=== PATIENT | female | born 1945 | race Caucasian/White ===

== ENCOUNTER → 2023-05-19 12:55 | Outpatient (REF) | payer MEDICARE, OTHER, SELFPAY ==
[2023-05-19 13:52] VITALS: BP 164/66; BP_SYST 67
== END ==
LOC: RADI 12:55
PROVIDERS: ATTENDING PHYSICIAN Internal Medicine Endocrinology, Diabetes & Metabolism; FAMILY PHYSICIAN Family Medicine
DX: C73 Malignant neoplasm of thyroid gland (principal)
CPT/HCPCS: 88173; 10005; 88342

== ENCOUNTER 2023-06-22 06:10 | Day surgery (SDC) | payer MEDICARE, OTHER, SELFPAY ==
[2023-06-11 09:04] VITALS: BMI 35.5
[2023-06-22] VITALS (7 sets, daily range): BP systolic 140–179; BP diastolic 56–76; BMI 35.5
[2023-06-22] MEDS: TYLENOL 1000 MG PO (06:40)
[2023-06-22] MEDS: NEURONTIN 300 MG PO (06:40)
[2023-06-22] MEDS: HEPARIN 5000 UNITS SC (06:40)
[2023-06-22] MEDS: NORMOSOL-R 1000 IV (06:41)
[2023-06-22 06:48] LABS: Glucose - Point of Care 89 mg/dl (70-99)
[2023-06-22 08:28] LABS: Turbo PTH 132.5 pg/ml (13.6-85.8)
[2023-06-22 09:11] LABS: Turbo PTH 258.5 pg/ml (13.6-85.8)
[2023-06-22 10:03] LABS: Turbo PTH 39.8 pg/ml (13.6-85.8)
[2023-06-22 10:58] LABS: Glucose - Point of Care 138 mg/dl (70-99)
--- NOTE | 2023-06-22 13:05 | OR.RPT ---
Operative Report
Operative Report
DATE OF OPERATION: June 22, 2023
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
������������������������������������������Thyroid cancer � C73
POSTOPERATIVE DIAGNOSIS: Same
SURGEON:Wilner Carroll M.D.
OPERATION: Right Thyroidectomy & Limited Neck Dissection � 83011
�������������������Right superior & inferior parathyroidectomy - 47730
ANESTHESIA:GET
ESTIMATED BLOOD LOSS: 3 cc
DRAINS:None
SPECIMEN: right thyroid lobe and isthmus and right level paratracheal tissue, right inferior and superior neck nodules
FINDINGS: Thyroid cancer, right inferior and superior parathyroid adenomas
COMPLICATIONS:�None
PROCEDURE:
The patient was taken to the operating room and placed in the usual supine position. After adequate general endotracheal anesthesia was established, the patient�s neck was extended, prepped, and draped in the typical sterile fashion. A 5 cm
transcervical incision was made two fingerbreadths above the sternal notch. The skin incision was made with the #15 blade, which was taken through the skin into the subcutaneous tissue. The underlying platysma muscle was divided, and subplatysmal
flaps were created superiorly to the thyroid cartilage and inferiorly to the sternal notch. Strap muscles were identified and at the midline.
Attention was turned to the patient�s right thyroid lobe. The right thyroid lobe was mobilized medially. During this process, the right middle thyroid vein and inferior thyroid artery were dissected and ligated with Ligasure. Next, the right
superior pole was taken down by dissecting and transecting the superior pole vessels with a Ligasure. The right thyroid lobe was mobilized medially. During this process, the right recurrent laryngeal nerve was identified and preserved throughout its
entire course. Furthermore, the enlarged right superior and inferior parathyroid glands were identified and preserved. The right thyroid lobe with isthmus was resected off the trachea and sent to the pathology department.
At this time, the right neck dissection was performed. The tissue between the right carotid artery to the trachea into the anterior mediastinum was carefully dissected. The previously identified recurrent laryngeal nerve and parathyroid glands were
preserved. The tissue was removed and sent to the pathology department.
After obtaining adequate hemostasis, the strap muscle was approximated with #3-0 Vicryl in a running fashion, and platysma muscles were reapproximated with #3-0 Vicryl in an interrupted fashion, and the skin was approximated with #4-0 Monocryl in a
running subcuticular fashion. Steri-strips and sterile dressings were placed. The patient tolerated the procedure well. The final instrument, needle, and sponge counts were correct.
== END 2023-06-22 12:32 | disposition home or self-care (01) ==
LOC: SDS 06:10
PROVIDERS: ATTENDING PHYSICIAN Surgery; FAMILY PHYSICIAN Family Medicine
DX: C73 Malignant neoplasm of thyroid gland (principal); E21.0 Primary hyperparathyroidism
CPT/HCPCS: 60252; 88305; 88307; 88332; 82962; 83970; 88331; 88341; 88342

== ENCOUNTER 2023-11-08 09:39 | Outpatient (RCR) | payer MEDICARE, OTHER, SELFPAY | END 2023-11-08 23:59 | disposition home or self-care (01) | LOC: RST 09:39 | PROVIDERS: ATTENDING PHYSICIAN Otolaryngology; FAMILY PHYSICIAN Family Medicine | DX: J38.7 Other diseases of larynx (principal); R49.0 Dysphonia; R49.21 Hypernasality | CPT/HCPCS: 92507; 92524 ==

== ENCOUNTER → 2023-12-31 09:36 | Outpatient (REF) | payer MEDICARE, OTHER, SELFPAY | LOC: HWRAD 09:36 | PROVIDERS: ATTENDING PHYSICIAN Internal Medicine Endocrinology, Diabetes & Metabolism; FAMILY PHYSICIAN Family Medicine | DX: C73 Malignant neoplasm of thyroid gland (principal) | CPT/HCPCS: 76536 ==

== ENCOUNTER 2024-02-04 09:10 | Outpatient (RCR) | payer MEDICARE, OTHER, SELFPAY | END 2024-02-04 12:41 | disposition home or self-care (01) | LOC: RST 09:10 | PROVIDERS: ATTENDING PHYSICIAN Family Medicine | DX: J38.7 Other diseases of larynx (principal); R49.0 Dysphonia | CPT/HCPCS: 92507; 92524 ==

== ENCOUNTER → 2024-02-17 08:43 | Outpatient (REF) | payer MEDICARE, OTHER, SELFPAY | LOC: HWEVLT 08:43 | PROVIDERS: ATTENDING PHYSICIAN Radiology Vascular & Interventional Radiology | DX: I83.893 Varicose veins of bilateral lower extremities with other complications (principal) | CPT/HCPCS: 93970 ==

== ENCOUNTER → 2025-02-22 09:10 | Outpatient (REF) | payer MEDICARE, OTHER, SELFPAY | LOC: HWRAD 09:10 | PROVIDERS: ATTENDING PHYSICIAN Internal Medicine Endocrinology, Diabetes & Metabolism; FAMILY PHYSICIAN Family Medicine | DX: E83.52 Hypercalcemia (principal) | CPT/HCPCS: 76536 ==